=== PATIENT | female | born 1975 | race Caucasian/White ===

== ENCOUNTER → 2019-10-05 | Outpatient (CLI) | payer OTHER ==
[~2019-10-05] VITALS: Ht 167.6 cm; Wt 54.4 kg
[~2019-10-05] MED LIST: MULTIPLE VITAM1 EAC2 PO; VITAMIN D32000 UNIT PO; [UNRECOGNIZED DRUG - OTHER] PO
--- NOTE | 2019-10-06 16:06 | PATH ---
[facility] [address] [place] [address] PATHOLOGY RPT PROCEDURE Name: SOLEDAD FARAH Room #: REG INES Molina#: [id number] Admission: 10/05/19 Date of : 71 Discharge: Report #: [id number] Path Case #: [id number] [facility] Accession Number: [id number] . 01 Material submitted: . esophagus - ESOPHAGEAL NODULE AT 20CM . 01 Clinical history: . Pre-OP DX: Reflux disease Post-OP DX: Esophageal nodule . 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 - Superficial gastric columnar-type mucosa showing reactive changes. - Negative for intestinal metaplasia, dysplasia or malignancy. (IUV:nurse reviewer; 10/06/2019) [facility]BR 10/06/2019 1216 Local . 02 Electronically signed: . Shalini Hanson MD, Pathologist NPI- [id number] . 01 Gross description: . Received in formalin labeled "Soledad Farah, esophageal nodule at 20 cm," are multiple segments of translucent soft tissue measuring 0.4 x 0.2 x 0.1 cm in aggregate dimensions. The specimen is filtered and entirely submitted in cassette A1. (TSD; 10/05/2019) TOB/TOB 10/05/2019 2304 Local . 02 Pathologist provided ICD-10: D13.0 . 02 CPT . 576247 Specimen Comment: A courtesy copy of this report has been sent to [phone] Specimen Comment: [phone] Specimen Comment: Report sent to and Performed at: [address] [id number] MD Brian Davila MD Phone: [phone] Performed at: [address] [id number] [address] [address] PATHOLOGY RPT PROCEDURE Name: SOLEDAD FARAH Room #: REG INES Molina#: [id number] Admission: 10/05/19 Date of : 71 Discharge: Report #: [id number] Path Case #: [id number] MD Shalini Hanson MD Phone: [phone]
== END | disposition home or self-care (01) ==
LOC: GI 07:18
DX: R12 Heartburn (principal); D13.0 Benign neoplasm of esophagus; K21.9 Gastro-esophageal reflux disease without esophagitis; Z98.890 Other specified postprocedural states; Z79.899 Other long term (current) drug therapy
CPT/HCPCS: 62110; 62900

== ENCOUNTER → 2019-10-20 | Outpatient (CLI) | payer OTHER | END | disposition home or self-care (01) | LOC: GI 07:26 | DX: K21.9 Gastro-esophageal reflux disease without esophagitis (principal); R10.9 Unspecified abdominal pain; R14.0 Abdominal distension (gaseous) ==